=== PATIENT | male | born 1945 | race Hispanic/Latino ===

== ENCOUNTER → 2018-11-21 | Outpatient (CLI) | payer OTHER ==
[~2018-11-21] VITALS: Ht 177.8 cm; Wt 87.1 kg
[~2018-11-21] MED LIST: REGADENOSON 0.4 MG/5 ML PF SYG IVP SCH
== END | disposition home or self-care (01) ==
LOC: SHCH 09:19
PROVIDERS: ATTEND Internal Medicine Cardiovascular Disease
DX: I25.10 Atherosclerotic heart disease of native coronary artery without angina pectoris (principal); R06.02 Shortness of breath; R07.9 Chest pain, unspecified
CPT/HCPCS: 78452; 93017; 96374; A9500 ×2; J2785

== ENCOUNTER 2022-02-08 22:46 | Emergency (ER) | payer MEDICARE, SELFPAY ==
[~2022-02-08] VITALS: Ht 175.3 cm; Wt 87.1 kg
[2022-02-08 22:47] VITALS: BP 166/89
[2022-02-08 23:18] LABS: APPEARANCE,URINE CLOUDY (CLEAR); BILIRUBIN,URINE NEGATIVE (NEGATIVE); COLOR,URINE YELLOW (YELLOW); GLUCOSE, URINE (UA) 30 mg/dL (NEGATIVE); KETONES,URINE NEGATIVE (NEGATIVE); LEUKOCYTE ESTERASE ,URINE 500 Leu/uL (NEGATIVE); NITRATE,URINE 1+ (NEGATIVE); OCCULT BLOOD,URINE LARGE (NEGATIVE); PH,URINE 5.5 (5.0-8.0); PROTEIN,URINE 100 mg/dL (NEGATIVE); UROBILINOGEN,URINE 0.2 mg/dL (0.2-1.0)
[2022-02-08 23:25] LABS: BACTERIA,URINE FEW /HPF (None Seen); MUCUS,URINE RARE LPF (None Seen); RBC,URINE 51-100 /HPF (0-1); SQUAMOUS EPITHELIAL CELL,UR FEW /HPF (0-2); WBC,URINE >100 /HPF (0-1)
[2022-02-08] MEDS ORDERED: PHEN-847 PO (23:26)
[2022-02-08] MEDS ORDERED: CEFU500T67 PO (23:26)
[2022-02-08] MEDS ORDERED: PHENAZOPYRIDINE HCL 200 MG TABLET PO ONE (23:30)
[2022-02-08] MEDS ORDERED: CEFTRIAXONE 1G VIAL IM ONE (23:30)
[2022-02-08] MEDS ORDERED: CEFTRIAXONE 1G VIAL ONE (23:31)
[2022-02-08] MEDS ORDERED: PHENAZOPYRIDINE HCL 200 MG TABLET ONE (23:32)
== END 2022-02-08 23:49 | disposition home or self-care (01) ==
LOC: EDH 22:46
DX: N39.0 Urinary tract infection, site not specified (principal); R30.0 Dysuria; E11.9 Type 2 diabetes mellitus without complications; I25.10 Atherosclerotic heart disease of native coronary artery without angina pectoris; E78.00 Pure hypercholesterolemia, unspecified; I10 Essential (primary) hypertension; Z98.890 Other specified postprocedural states; Z79.899 Other long term (current) drug therapy
CPT/HCPCS: 99283; 87077; 87088; 87186; 81001; 96372; J0696

== ENCOUNTER → 2022-08-19 | Outpatient (CLI) | payer OTHER ==
[~2022-08-19] MED LIST changes: +CEFU500T67 PO; +PHEN-847 PO; -REGADENOSON 0.4 MG/5 ML PF SYG IVP SCH
== END | disposition home or self-care (01) ==
LOC: SHCH 09:54
PROVIDERS: ATTEND Internal Medicine Cardiovascular Disease
DX: I11.9 Hypertensive heart disease without heart failure (principal); I20.9 Angina pectoris, unspecified; I35.8 Other nonrheumatic aortic valve disorders; E11.9 Type 2 diabetes mellitus without complications; E78.5 Hyperlipidemia, unspecified; Z95.0 Presence of cardiac pacemaker; Z95.1 Presence of aortocoronary bypass graft
CPT/HCPCS: 93306

== ENCOUNTER → 2022-11-09 | Outpatient (CLI) | payer OTHER ==
[~2022-11-09] MED LIST changes: +REGADENOSON 0.4 MG/5 ML PF SYG IVP ONE
== END | disposition home or self-care (01) ==
LOC: SHCH 08:19
PROVIDERS: ATTEND Internal Medicine Cardiovascular Disease
DX: I25.10 Atherosclerotic heart disease of native coronary artery without angina pectoris (principal); I48.0 Paroxysmal atrial fibrillation; I11.0 Hypertensive heart disease with heart failure; I50.42 Chronic combined systolic (congestive) and diastolic (congestive) heart failure; E78.5 Hyperlipidemia, unspecified; E11.9 Type 2 diabetes mellitus without complications; Z95.0 Presence of cardiac pacemaker; Z95.1 Presence of aortocoronary bypass graft; Z79.01 Long term (current) use of anticoagulants; Z79.899 Other long term (current) drug therapy
CPT/HCPCS: 78452; 96374; 93017; J2785; A9500 ×2

== ENCOUNTER → 2023-07-02 | Outpatient (CLI) | payer OTHER ==
[~2023-07-02] MED LIST changes: -REGADENOSON 0.4 MG/5 ML PF SYG IVP ONE
== END ==
LOC: RAH 08:57
PROVIDERS: ATTEND Internal Medicine Cardiovascular Disease
DX: J84.10 Pulmonary fibrosis, unspecified (principal); Z90.49 Acquired absence of other specified parts of digestive tract
CPT/HCPCS: 71250

== ENCOUNTER 2024-05-02 06:07 | Day surgery (SDC) | payer OTHER ==
[2024-04-28 13:07] VITALS: BP 146/69; PULSE 72; RESP 18; TEMP 97.5
[2024-04-28 13:11] LABS: BASOPHILS # (AUTO) 0.02 K/uL (0.00-0.20); BASOPHILS % (AUTO) 0.5 % (0.0-5.0); CREATININE 1.1 mg/dL (0.5-1.3); EOSINOPHILS # (AUTO) 0.14 K/uL (0.00-0.70); EOSINOPHILS % (AUTO) 3.3 % (0.0-8.0); HEMATOCRIT 32.5 % (42-54); IMMATURE GRANULOCYTE ABSOLUTE 0.01 K/uL (0-1); LYMPHOCYTES # (AUTO) 1.1 K/uL (1.0-4.8); LYMPHOCYTES % (AUTO) 26.7 % (21.0-51.0); MEAN CORPUSCULAR HEMOGLOBIN 30.6 pg (27.0-33.0); MEAN CORPUSCULAR HGB CONC 32.3 g/dL (32.0-36.0); MEAN CORPUSCULAR VOLUME 94.8 fL (79-99); MONOCYTES # (AUTO) 0.5 K/uL (0.1-1.0); MONOCYTES % (AUTO) 11.1 % (3.0-13.0); NEUTROPHILS # (AUTO) 2.5 K/uL (1.8-7.7); NEUTROPHILS % (AUTO) 58.2 % (40.0-77.0); PLATELET COUNT (AUTO) 163 K/uL (130-400); POTASSIUM 5.1 mmol/L (3.5-5.1); RED BLOOD CELL COUNT(AUTO) 3.43 MIL/uL (4.50-6.20); RED CELL DISTRIBUTION WIDTH 14.2 % (11.0-15.5); WHITE BLOOD COUNT (AUTO) 4.2 K/uL (4.8-10.8)
[2024-04-28 13:20] LABS: INR 3.24 (0.85-1.15); PROTHROMBIN TIME 32.3 SEC (9.6-11.6)
[2024-04-28 13:22] LABS: PARTIAL THROMBOPLASTIN TIME 42.9 SEC (26.3-35.5)
--- NOTE | 2024-04-28 19:56 | EKG ---
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
--- NOTE | 2024-05-01 09:58 | NUR ---
RE: LABS REPORTED PT 32.3/INR 3.[address] EMERY (PATIENT ON WARFARIN 5MG QHS, INSTRUCTED TO HOLD 3 DAYS BEFORE PROCEDURE). NO NEW ORDERS RECEIVED.
[~2024-05-02] VITALS: Ht 175.3 cm; Wt 87.4 kg
[~2024-05-02 06:07] MED LIST changes: +BENA-8 PO; -CEFU500T67 PO; +FE F1CAP8 PO; +LEVO125C4 PO; +METO-409 PO; +NITR0.4T50 SL; -PHEN-847 PO; +PIOG30TA70 PO; +PRAV40TA3 PO; +TAMS-1 PO; +WARF-57 PO
[2024-05-02 06:15] VITALS: BP 143/66; PULSE 88; RESP 18; TEMP 97.4
[2024-05-02] MEDS: 0.9%NACL 1000ML 1,000 ML IV SCH (07:03)
[2024-05-02] MEDS ORDERED: BUPIvacaine/PF 0.25% 30ML VIAL IJ ONE (07:11)
[2024-05-02] MEDS ORDERED: ceFAZolin SODIUM 1 GM VIAL ONE (07:11)
[2024-05-02] MEDS ORDERED: LIDOCAINE HCL 1% MDV 50ML VIAL ONE (07:11)
[2024-05-02] MEDS ORDERED: FENTanyl CITRate PF 50 MCG/1 ML 2ML VIAL ONE (07:39)
[2024-05-02] MEDS ORDERED: MIDAZOLAM HCL 1 MG/ML 2ML VIAL ONE (07:40)
[2024-05-02] MEDS ORDERED: 0.9%NACL 1000ML 1,000 ML IV SCH ×2 (08:00→11:00)
[2024-05-02] MEDS ORDERED: MINO100C6 PO (08:28)
[2024-05-02] MEDS ORDERED: TRAM50TA4 PO (08:29)
[2024-05-02] MEDS ORDERED: acetaMINOPHEN WITH coDEINE 1 TAB TAB PO PRN ×2 (08:30)
[2024-05-02] MEDS ORDERED: acetaMINOPHEN 500 MG TABLET PO PRN (08:30)
[2024-05-02 08:40] VITALS: BP 129/63; PULSE 60; RESP 12; TEMP 97.3
[2024-05-02 08:55] VITALS: BP 118/62; PULSE 60; RESP 14
[2024-05-02 09:10] VITALS: BP 124/75; PULSE 79; RESP 14
[2024-05-02 09:25] VITALS: BP 108/53; PULSE 59; RESP 15
[2024-05-02 09:55] VITALS: BP 121/62; PULSE 62; RESP 14
== END 2024-05-02 10:15 | disposition home or self-care (01) ==
LOC: DAH 06:07
PROVIDERS: ATTEND Student in an Organized Health Care Education/Training Program
DX: Z45.010 Encounter for checking and testing of cardiac pacemaker pulse generator [battery] (principal); I10 Essential (primary) hypertension; E03.9 Hypothyroidism, unspecified; I48.91 Unspecified atrial fibrillation; Z79.890 Hormone replacement therapy; Z87.891 Personal history of nicotine dependence; Z83.3 Family history of diabetes mellitus; Z79.899 Other long term (current) drug therapy; Z98.890 Other specified postprocedural states
CPT/HCPCS: 80048; 85025; 85610; 85730; 36415; 93005; 33228; 82948; C1785; J3010; J0690; J7030; J0665; J2250; J3490; A4215; A4222; A4221; A4663; A4216; A4606; A4223 ×3; 99156; 99157

== ENCOUNTER → 2024-07-10 | Outpatient (CLI) | payer OTHER ==
[~2024-07-10] MED LIST changes: +MINO100C6 PO
[2024-07-10 17:00] LABS: CREATININE 1.4 mg/dL (0.5-1.3); MAGNESIUM 2.1 mg/dL (1.80-2.40); POTASSIUM 5.4 mmol/L (3.5-5.1)
== END | disposition home or self-care (01) ==
LOC: LAB 14:36
PROVIDERS: ATTEND Internal Medicine Cardiovascular Disease
DX: I48.0 Paroxysmal atrial fibrillation (principal)
CPT/HCPCS: 36415; 80048; 83735

== ENCOUNTER → 2024-08-02 | Outpatient (CLI) | payer OTHER ==
[~2024-08-02] MED LIST changes: -LEVO125C4 PO; +LEVO125C5 PO; -TAMS-1 PO; +TAMS-55 PO
[2024-08-02 12:43] LABS: CREATININE 1.4 mg/dL (0.5-1.3); POTASSIUM 4.6 mmol/L (3.5-5.1)
== END | disposition home or self-care (01) ==
LOC: LAB 09:40
PROVIDERS: ATTEND Internal Medicine Cardiovascular Disease
DX: I48.0 Paroxysmal atrial fibrillation (principal)
CPT/HCPCS: 36415; 80048

== ENCOUNTER → 2024-09-07 | Outpatient (CLI) | payer OTHER ==
[2024-09-07] MEDS: REGADENOSON 0.4 MG/5 ML PF SYG IVP ONE (15:42)
== END | disposition home or self-care (01) ==
LOC: SHCH 08:30
PROVIDERS: ATTEND Internal Medicine Cardiovascular Disease
DX: I25.118 Atherosclerotic heart disease of native coronary artery with other forms of angina pectoris (principal); R06.00 Dyspnea, unspecified
CPT/HCPCS: 78452; 93017; J2785; A9500 ×2

== ENCOUNTER 2024-10-06 05:49 | Day surgery (SDC) | payer OTHER ==
[2024-10-03 11:25] VITALS: BP 139/74; PULSE 54; RESP 18; TEMP 97.8
--- NOTE | 2024-10-03 12:26 | HMCIMG ---
CHEST 1VW HISTORY: Preop COMPARISON: None FINDINGS: A frontal projection of the chest was obtained. No acute pulmonary infiltrates is seen. Poststernotomy changes are seen. The heart is enlarged. Degenerative changes of the thoracolumbar spine are present. Pacemaker is seen entering from the left. All the lines and tubes are again seen in place. No evidence of aortic calcification is seen. IMPRESSION: 1. No acute pulmonary infiltrate is seen.
--- NOTE | 2024-10-03 12:54 | EKG ---
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
[2024-10-03 14:38] LABS: BASOPHILS # (AUTO) 0.03 K/uL (0.00-0.20); BASOPHILS % (AUTO) 0.9 % (0.0-5.0); EOSINOPHILS # (AUTO) 0.18 K/uL (0.00-0.70); EOSINOPHILS % (AUTO) 5.4 % (0.0-8.0); HEMATOCRIT 33.4 % (42-54); IMMATURE GRANULOCYTE ABSOLUTE 0.01 K/uL (0-1); LYMPHOCYTES # (AUTO) 1.2 K/uL (1.0-4.8); LYMPHOCYTES % (AUTO) 35.2 % (21.0-51.0); MEAN CORPUSCULAR HEMOGLOBIN 31.5 pg (27.0-33.0); MEAN CORPUSCULAR HGB CONC 32.9 g/dL (32.0-36.0); MEAN CORPUSCULAR VOLUME 95.7 fL (79-99); MONOCYTES # (AUTO) 0.3 K/uL (0.1-1.0); MONOCYTES % (AUTO) 9.9 % (3.0-13.0); NEUTROPHILS # (AUTO) 1.6 K/uL (1.8-7.7); NEUTROPHILS % (AUTO) 48.3 % (40.0-77.0); PLATELET COUNT (AUTO) 135 K/uL (130-400); RED BLOOD CELL COUNT(AUTO) 3.49 MIL/uL (4.50-6.20); RED CELL DISTRIBUTION WIDTH 15.5 % (11.0-15.5); WHITE BLOOD COUNT (AUTO) 3.3 K/uL (4.8-10.8)
[2024-10-03 15:05] LABS: CREATININE 1.2 mg/dL (0.5-1.3); POTASSIUM 4.3 mmol/L (3.5-5.1)
[2024-10-03 15:33] LABS: B-TYPE NATRIURETIC PEPTIDE 449 pg/mL (0-100)
[2024-10-03 16:16] LABS: INR 1.08 (0.85-1.15); PROTHROMBIN TIME 11.4 SEC (9.6-11.6)
[2024-10-03 16:17] LABS: PARTIAL THROMBOPLASTIN TIME 33.1 SEC (26.3-35.5)
[2024-10-05 07:39] VITALS: BP 136/77; PULSE 80; RESP 18; TEMP 97.9
[2024-10-05] MEDS: 0.9%NACL 1000ML 1,000 ML IV SCH (08:05)
--- NOTE | 2024-10-05 08:42 | NUR ---
CONSULT: DR. MECHELLE VARGAS MADE AWARE OF PATIENT TAKING ELIQUIS YESTERDAY 10/04/24 @ 12:00 NOON. PT TO BE CANCLEED FOR TODAY AND RESCHEDULE FOR TOMORROW 10/06/24
[~2024-10-06] VITALS: Ht 177.8 cm; Wt 83.2 kg
[2024-10-06] VITALS (12 sets, daily range): BP systolic 152–180; BP diastolic 70–91; PULSE 60–89; RESP 14–16; TEMP 97–97.5
[~2024-10-06 05:49] MED LIST changes: +APIX5TAB PO; -BENA-8 PO; +DRON400T7 PO; -FE F1CAP8 PO; +ISOS30TA92 PO; -MINO100C6 PO; -PRAV40TA3 PO; +PRAV40TA62 PO; -WARF-57 PO
[2024-10-06] MEDS ORDERED: LIDOCAINE HCL 400MG/20ML VIAL ONE (07:07)
[2024-10-06] MEDS ORDERED: FENTanyl CITRate PF 50 MCG/1 ML 2ML VIAL ONE (07:07)
[2024-10-06] MEDS ORDERED: MIDAZOLAM HCL 1 MG/ML 2ML VIAL ONE ×2 (07:08→08:40)
[2024-10-06] MEDS ORDERED: HEParin-NS 1,000 UNIT/500 ML 1,000 ML IV ONE (07:08)
[2024-10-06] MEDS ORDERED: NITROGLYCERIN 50MG VIAL ONE (07:08)
[2024-10-06] MEDS ORDERED: BIVALIRUDIN 250 MG/VIAL IV ONE (07:09)
[2024-10-06] MEDS ORDERED: IOHEXOL 350 MG/ML 100ML INFUS..BTL IV ONE ×2 (07:10→08:09)
[2024-10-06] MEDS ORDERED: HEParin 10,000 UNIT/10ML (1,000 UNIT/ML) VIAL ONE (08:04)
[2024-10-06] MEDS ORDERED: ASPIRIN 81 MG EC TAB ONE (09:08)
[2024-10-06] MEDS ORDERED: cloPIDOgrel 300MG TAB ONE (09:08)
[2024-10-06] MEDS ORDERED: GLUCAGON 1MG KIT 1 MG ML IM PRN (09:30)
[2024-10-06] MEDS ORDERED: hydrALAZine 20MG/ML VIAL IV PRN (09:30)
[2024-10-06] MEDS ORDERED: NITROGLYCERIN 0.4 MG SL TAB SL PRN (09:30)
[2024-10-06] MEDS ORDERED: 0.9%NACL 1000ML 1,000 ML IV SCH (09:30)
[2024-10-06] MEDS ORDERED: DEXTROSE 50%-WATER 50 ML DISP.SYRIN IV PRN (09:30)
--- NOTE | 2024-10-06 09:40 | PRN ---
PROCEDURES: 1. Right common femoral arterial sheath placement. 2. Selective coronary angiogram. 3. Left heart catheterization. 4. Left ventriculogram. 5. Saphenous vein graft cannulation x3 6. Left subclavian arteriogram to assess patency of YE 7. IFR pressure Omni wire assessment of left main lesion and ostial LAD lesion and mid LAD lesion 8. Lithotripsy angioplasty to mid LAD with the use of a 3 mm x 12 mm lithotripsy balloon for a total of 12 treatments in overlapping fashion 9. 3.5 mm x 38 mm resolute virginia stent placement to mid LAD deployed to 3.50 mm 10. 3.5 mm x 12 mm resolute virginia stent to mid LAD proximal segment in an overlapping fashion with the previously placed stent deployed to 3.80 mm with proximal and midportion of 38 mm stent post dilated to 3.80 mm 11. Perclose the left femoral arteriotomy site INDICATION: Unstable angina Abnormal stress test high-risk DESCRIPTION OF PROCEDURE: The patient was brought to the catheterization suite and prepped and draped in sterile fashion. IV was started, and not already in place and both groins were exposed for arterial access. 1% lidocaine was used for local anesthesia and then a micropuncture kit was used to gain access once free-flowing blood was seen, modified Seldinger technique was utilized to place a 6 Arabic sheath into the right common femoral artery. Next, preformed JL4 and JR 4 catheters were used to selectively engage the [place] band coronary vessels and multiple hand contrast injections were performed in different views to define the coronary anatomy. The JR4 catheter was able to cannulate 3 saphenous vein grafts as well as the left subclavian artery to assess patency of YE. Six Arabic angled pigtail was used across aortic valve pressure measurements were obtained and then a left ventriculogram was performed in the 30 BONE position. Findings are as described below. FINDINGS: The left main artery bifurcates into the LAD and left circumflex and previously was noted to have a distal left main stenosis of 70% but upon evaluation 8 was at 20-30% The left anterior descending artery in its ostial segment had a 30-50% stenosis followed by a mid sequential stenosis of 60-85% which was heavily calcified followed by an apical stenosis of 50%. There was a high diagonal branch 1 that came off that was free of any significant disease with a subtotal diagonal branch 2. YE was atretic The left circumflex artery was a codominant system giving rise to the left posterolateral branch. There was sequential lesions noted within the mid left circumflex artery of 95% and 90% respectively significantly calcified. Saphenous vein graft to obtuse marginal branch 2. Was noted to be patent with excellent retrograde filling of the entirety of the left circumflex. Saphenous vein graft to obtuse marginal branch 3. Had areas of dilatation at valve site but graft was patent with no significant degeneration or compromise flow to the obtuse marginal branch 3. Which also provided excellent retrograde filling of the left posterolateral branch. The right coronary artery was a codominant system giving rise to the PDA. There was a proximal stenosis in the right coronary artery by 85%. The saphenous vein graft to the PDA was noted to be patent. INTERVENTIONAL REPORT: After diagnostic angiography was performed it was felt IFR Omni pressure assessment should be done of left main vessel as well as LAD lesions. Therefore we went in with a 6 Arabic Q 4 guide catheter and then used the Omni wire IFR to take measurements of the left main lesion which had a ratio of 0.99 followed by the ostial LAD lesion which had a ratio of 0.98 and then the mid LAD lesion had a ratio of 0.88. Therefore I then placed a run-through wire into the distal ongoing LAD under fluoroscopic guidance Omni wire was removed and because of significant calcification was felt lithotripsy should be performed. Therefore initial attempts were made to get lithotripsy balloon into the mid and LAD but were unsuccessful so a GuideLiner was used for support and I was able to successfully place the lithotripsy balloon into the distal portion of the mid LAD and start treatment. This was done in safe successive fashion in an overlapping fashion with a total of 12 treatments done at 6 atmospheres. Next through the GuideLiner a 3.5 mm x 38 mm resolute virginia stent was then placed in the mid LAD and deployed to 3.50 mm. Next a 3.5 mm x 12 mm virginia Reese stent was then placed in overlapping fashion in the mid LAD with the previously placed stent and deployed to 3.80 mm. That delivery system was then advanced and the previously placed stent was post dilated from its mid section to its proximal segment to 3.80 mm. Follow up contrast injection revealed no evidence of dissection or perforation. At end of case Perclose device was used for closure of arteriotomy site and no complications occurred. RECOMMENDATIONS: Initiate dual antiplatelet therapy IV hydration throughout day with discharge later today Follow up with Dr. Epperson 1-2 weeks MECHELLE EPPERSON MD Oct 06, 2024 09:40
[2024-10-06] MEDS ORDERED: ASPI-1197 PO (11:51)
[2024-10-06] MEDS ORDERED: CLOP75TA32 PO (11:51)
--- NOTE | 2024-10-06 15:22 | NUR ---
PT AND SPOUSE GIVEN VERBAL AND WRITTEN DISCHARGE INSTRUCTIONS. IV REMOVED SITE ASYMPTOMATIC. VSS NAD PT TAKEN OUT VIA WHEELCHAIR DRIVING
== END 2024-10-06 15:32 | disposition home or self-care (01) ==
LOC: DAH 05:49
PROVIDERS: ATTEND Internal Medicine Cardiovascular Disease
DX: R94.39 Abnormal result of other cardiovascular function study (principal); I25.110 Atherosclerotic heart disease of native coronary artery with unstable angina pectoris; E03.9 Hypothyroidism, unspecified; E11.9 Type 2 diabetes mellitus without complications; I49.5 Sick sinus syndrome; I48.0 Paroxysmal atrial fibrillation; I50.42 Chronic combined systolic (congestive) and diastolic (congestive) heart failure; I11.0 Hypertensive heart disease with heart failure; I49.3 Ventricular premature depolarization; R53.83 Other fatigue; Z95.0 Presence of cardiac pacemaker; Z95.1 Presence of aortocoronary bypass graft; Z79.01 Long term (current) use of anticoagulants; Z79.899 Other long term (current) drug therapy
CPT/HCPCS: 80048; 83880; 85025; 85610; 85730; 36415; 71045; 93005; 82948 ×2; 92972; 93571; 93572; 99157 ×5; 93459; 99156; J7030; C9600; C1769 ×3; C1887 ×3; C1894 ×2; C1874 ×2; C1760; C1761; J3010; J3490 ×2; J1644 ×2; J2250 ×2; J0583; Q9967 ×2; A4215; A4222; A4221; A4663; A4216; A4606; Q9965 ×3; A4223 ×3; 96360; 96361